=== PATIENT | male | born 1985 | race Caucasian/White ===

== ENCOUNTER 2016-11-06 12:55 | Emergency (ER) | payer OTHER ==
[2016-11-06] MEDS ORDERED: Sodium Chloride 0.9% 1,000 ML PRIMARY IV ONE (13:22)
[2016-11-06] MEDS ORDERED: NORMAL SALINE 10 ML SYRINGE FLUSH IVP PRN (13:22)
[2016-11-06 13:50] VITALS: RESP 18; TEMP 96.8
[2016-11-06 14:04] LABS: VENOUS PH 7.41 (7.32-7.42)
[2016-11-06 14:07] LABS: BASOPHILS # (AUTO) 0.03 10*3/UL; BASOPHILS % (AUTO) 0.5 % (0-1); EOSINOPHILS # (AUTO) 0.02 10*3/UL; EOSINOPHILS % (AUTO) 0.4 % (0-8); HEMATOCRIT 49.7 % (42.0-52.0); HEMOGLOBIN 17.5 g/dL (14.0-18.0); LYMPHOCYTES # (AUTO) 0.76 10*3/uL; MEAN CORPUSCULAR HEMOGLOBIN 29.2 PG (27-31); MEAN CORPUSCULAR HGB CONC 35.2 g/dL (33-37); MEAN CORPUSCULAR VOLUME 82.8 FL (80-90); MEAN PLATELET VOLUME 11.1 FL (7.4-12.2); MONOCYTES % (AUTO) 16.4 % (5-15); NEUTROPHILS # (AUTO) 3.75 10*3/UL; NEUTROPHILS % (AUTO) 68.4 % (50-80)
[2016-11-06 14:11] LABS: PLATELET MORPHOLOGY COMMENT NORMAL MORPHOLOGY (NORM); RBC MORPHOLOGY COMMENT NORMAL MORPHOLOGY (NORM); WBC MORPHOLOGY COMMENT NORMAL MORPHOLOGY (NORM)
[2016-11-06 14:14] LABS: BLOOD UREA NITROGEN 12 mg/dL (7-22); CALCIUM 8.8 mg/dL (8.7-10.7); EST GLOMERULAR FILTRATION > 60 (>60 ml/min/1.73m(2)); LIPASE 53 IU/L (23-300); SERUM ALBUMIN 3.9 g/dL (3.5-4.8)
--- NOTE | 2016-11-06 15:41 | DI ---
HISTORY: Right-sided abdominal pain and diarrhea. TECHNIQUE: Contiguous transaxial computed tomographic images were obtained of the abdomen and pelvis per routine protocol with IV contrast. Coronal and sagittal reformat images were performed. COMPARISON: None. FINDINGS: LUNG BASES: Clear. INFERIOR MEDIASTINUM: Unremarkable. LIVER: Normal in size and attenuation with no focal abnormalities. GALLBLADDER AND BILE DUCTS: Gallbladder is normal in appearance with no gallbladder wall thickening or pericholecystic fluid. No biliary dilatation. SPLEEN: Normal in size and attenuation with no focal abnormalities. PANCREAS: Normal in size and attenuation with no focal abnormalities. ADRENALS: Normal in size and attenuation with no focal abnormalities. : Kidneys enhance normally with no focal abnormalities. No evidence of urinary obstruction or obst ructing urinary calculi. Ureters are normal throughout their course. Urinary bladder is within norm al limits. GI: there is diffuse mild thickening and inflammation throughout the colon. There is no focal rim enh ancing fluid collection to suggest abscess formation. There is no appendicitis. PELVIS: Within normal limits with no mass identified. VESSELS: Aorta is normal in size with no evidence of aneurysm or rupture. BONES: No acute bony abnormality. No suspicious osteolytic or osteoblastic lesion. SOFT TISSUES: Unremarkable. IMPRESSION: 1. There is diffuse mild thickening and inflammation of the colon. This is most likely an infectious colitis. Inflammatory colitis is also possible.
--- NOTE | 2016-11-06 18:54 | PDOC ---
Nausea/Vomiting/Diarrhea HPI - General Chief Complaint: Nausea / Vomiting / Diarrhea Stated Complaint: Diarrhea x 2 days Date Seen by Provider: 11/06/16 Time Seen by Provider: 13:10 Source: POSITIVE: Patient, Spouse Exam Limitations: POSITIVE: No limitations Nurse's Notes Reviewed & Considered: Yes - History of Present Illness Initial Comments: The patient is a 30-year-old male. His chief complaint is diarrhea. He states that 3 days ago he felt febrile and states he had a temperature of 102 at the onset of his illness 3 days ago. He states he continued to run a fever for 1-1- 1/2 days. He does not think he's had any fever for at least 1-1/2 days. Beginning 2 days ago he began to develop some diarrhea. Patient states he estimates that he has been having 12-15 loose bowel movements per day for the past 2 days. Patient describes the character of the stool as "watery and mucousy". No melena or hematochezia. He also has had some abdominal cramping and some discomfort in the right paraumbilical area, mild. No vomiting. No melena, hematochezia, hematemesis, dysuria or hematuria. He's not had any abdominal surgery. No rashes or skin changes. Body Location Affected: REPORTS: Abdomen Timing: REPORTS: Constant Duration: >24 hours (Diarrhea for 2 days) Severity: Moderate Quality: REPORTS: "Pain" (Lower abdominal cramping and some right paraumbilical discomfort) Abdominal Pain Onset Location: REPORTS: Periumbilical Abdominal Pain Radiation: REPORTS: No radiation Context: DENIES: None, Activity, Bending, Coughing, Fall, Lifting, Near Fall, Rest, Sitting, Sleep, Standing, Turning, Emotional stress, Camping, Bad Food, Out of Country Travel, Other, Recent Surgery, Recent Trauma Modifying Factors: worse with: Nothing, Analgesics, Antacids, Breathing, Coughing, Defecating, Vomiting, Eating, Exercise, Lying down, Urinating, Palpation, Movement, Rest, Upright Position, Walking, Remaining Still, Other Associated Symptoms: REPORTS: Diarrhea, Mucous Diarrhea, Abdominal Pain, Cramping, Periumbilical Pain Similar Symptoms Previously: No Recent Care Received: REPORTS: Denies Any Prior Injuries Related to Current Complaint?: No - Patient Home Medications Home Medications: Home Medications Bismuth Subsalicylate [Pepto-Bismol] 525 mg PO PRN 11/06/16 Loperamide [Imodium] 2 mg PO PRN 11/06/16 - Patient Allergies Allergies/Adverse Reactions: Allergies Allergy/AdvReac Type Severity Reaction Status Date / Time erythromycin base Allergy HIVES Verified 11/06/16 13:51 Sulfa (Sulfonamide Allergy HIVES Verified 11/06/16 13:51 Antibiotics) Past Medical History - heen HEENT History: Denies History Cardiovascular History: Denies History Respiratory History: Denies History Gastrointestinal History: Denies History Genitourinary History: Denies History Endocrine History: Denies History Musculoskeletal History: Denies History Prosthesis or Implant: No Neurological History: Seizures Additional Neurological History: none since 13 yrs of age Blood Disorders: Denies History Psychiatric History: Denies History History of Sexually Transmitted Diseases: No Male Reproductive History: Denies History Cancer History: Denies History In Past Year Been Physically Harmed or Verbally Threatened: No History of MDRO: No History of Other Communicable Diseases: No Tobacco Use: Never Smoker Alcohol Use: Other How much alcohol do you normally drink a day?: daily Substance Use Type: None Previous Surgical History: No Past Medical History Reviewed: Reviewed - No Changes ROS - Limitations ROS Limitations: No Limitations Constitution: REPORTS: Fever (None for the past 2 days) Cardiovascular: REPORTS: Denies Cardiac Symptoms Respiratory: REPORTS: Denies Resp Symptoms Neurological: REPORTS: Denies Neuro Symptoms Gastrointestinal: REPORTS: Abdominal Pain, Diarrhea Endocrine: REPORTS: Denies Symptoms Musculoskeletal: REPORTS: Denies MS Symptoms Genitourinary: REPORTS: Denies Symptoms Eyes: REPORTS: Denies Symptoms ENT: REPORTS: Denies Symptoms Skin: REPORTS: Denies Skin Symptoms Lympathic: REPORTS: Denies Lympathic Symptoms Immunologic: POSITIVE: Denies Symptoms Psychiatric: POSITIVE: Denies Psych Symptoms Nausea/Vomiting/Diarrhea Exam - General Appearance General Appearance: POSITIVE: Alert, Cooperative, No Acute Distress, No Evidence of Trauma - HEENT HEENT: POSITIVE: Head Inspection Nml, Eyes Inspection Nml, Ears Inspection Nml, Nose Inspection Nml, Oral/Dental Inspect. Nml, Pharynx Inspect. Nml, PERRL, EOMI - Neck Neck: POSITIVE: Supple, Normal Inspection, Non Tender - Respiratory Respiratory: POSITIVE: No Respiratory Distress, Breath Sounds Normal, Chest Non- Tender - Cardiovascular Cardiovascular: POSITIVE: Regular Rate and Rhythm, Heart Sounds Normal, Equal Pulses, Strong Pulses Peripheral Pulses: Radial (R): 2+, Radial (L): 2+ - Chest Chest: POSITIVE: Non Tender - Abdomen Abdomen: Soft: (All Quadrants), Normal Bowel Sounds: (All Quadrants), No Splenomegaly: (All Quadrants), No Hepatomegaly: (All Quadrants), No Guarding: ( All Quadrants), No Rebound: (All Quadrants), No Palpable Pulse: (All Quadrants) , No Palpabale Mass: (All Quadrants), No Distention: (All Quadrants), No Rigidity: (All Quadrants) Additional Abdominal Details: Abdominal examination shows bowel sounds to be active. Patient states he has some vague mild discomfort on firm deep palpation in the paraumbilical area, especially to the right. No masses, organomegaly or rebound. - Genital / Rectal Rectal: POSITIVE: Heme Positive Stool (Stool tested Hemoccult positive when he had a bowel movement; no rectal exam done) - Back Back: POSITIVE: Normal Inspection. 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 Lab Results Reviewed: Yes (C. difficile negative, Giardia and cryptosporidium negative, no leukocytes ) Lab Results:: Laboratory Results 11/06/16 11/06/16 Range/Units 13:45 13:55 WBC 5.49 (4.8-10.8) 10^3/uL RBC 6.00 (4.70-6.10) 10^6/uL Hgb 17.5 (14.0-18.0) g/dL Hct 49.7 (42.0-52.0) % MCV 82.8 (80-90) FL MCH 29.2 (27-31) PG MCHC 35.2 (33-37) g/dL RDW Std Deviation 40.1 (39-50) fL RDW Coeff of Jessica 13.2 (11.5-14.5) % Plt Count 174 (140-350) 10*3/uL MPV 11.1 (7.4-12.2) FL Immature Gran % (Auto) 0.5 (0-5) % Neut % (Auto) 68.4 (50-80) % Lymph % (Auto) 13.8 (10-50) % [place] % (Auto) 16.4 H (5-15) % Eos % (Auto) 0.4 (0-8) % Baso % (Auto) 0.5 (0-1) % Immature Gran # (Auto) 0.03 10*3/UL Neut # (Auto) 3.75 10*3/UL Lymph # (Auto) 0.76 10*3/uL [place] # (Auto) 0.90 H (0.3-0.8) 10*3/UL Eos # (Auto) 0.02 10*3/UL Baso # (Auto) 0.03 10*3/UL WBC Morphology Comment Normal morphology (NORM) Plt Morphology Comment Normal morphology (NORM) RBC Morph Comment Normal morphology (NORM) VBG pH 7.41 (7.32-7.42) VBG pCO2 35 L (45-55) mmHg VBG HCO3 22 (22-26) mmol/L VBG Base Excess -2 (-2-2) MMOL/L Sodium 136 (135-145) meq/L Potassium 4.0 (3.8-5.2) meq/L Chloride 99 (98-112) meq/L Carbon Dioxide 25 (23-33) meq/L Anion Gap 12 (5-20) BUN 12 (7-22) mg/dL Creatinine 1.1 (0.70-1.50) mg/dL Estimated GFR > 60 (>60 ml/min/1.73m(2)) BUN/Creatinine Ratio 10.90 (6-20) Glucose 108 (78-110) mg/dL Calculated Osmolality 282.0 (267-292) mOsm/kg Lactic Acid 2.3 H (0.70-2.10) MMOL/L Calcium 8.8 (8.7-10.7) mg/dL Total Bilirubin 0.7 (0.3-1.2) mg/dL AST 32 (21-57) IU/L ALT 49 (21-72) IU/L Alkaline Phosphatase 56 (38-126) IU/L Total Protein 6.5 (6.1-8.0) g/dL Albumin 3.9 (3.5-4.8) g/dL Globulin 2.7 (2.50-4.10) g/dL Albumin/Globulin Ratio 1.40 (1.3-2.0) mg/g Amylase 40 (30-110) U/L Lipase 53 (23-300) IU/L - Patient's Progress Pain Medication Addressed: POSITIVE: Not Applicable School/Work Release Addressed: POSITIVE: Yes (Patient given work release for 72 hours) Re-examine Time: 16:00 Re-Examine Comment: Patient hydrated with a liter of normal saline. Diagnosis of colitis, probably infectious, discussed with and his . Options of treatment, including admission, discussed with patient and his . Patient advised that he needs to be followed up in a timely manner. I discussed disposition of treatment with Dr. Aldana, primary care. [place] [facility] [place]; hopefully stool cultures will be back by then. Patient is to return here anytime if he worsens in any way, especially if he develops abdominal pain, high fevers, bloody stool, or if condition worsens in any way. Status: POSITIVE: Unchanged, Re-Examined - Consult Consult (If Yes, Name of Consulting MD & Time Called): Yes (Dr. Aldana, [facility], [id number]) Consulting MD will see pt:: POSITIVE: In Office Counseled: POSITIVE: Patient, Family (), RE: Lab Results, RE: Radiology Results, RE: DX, RE: Need for F/U Patient Care Time - Estimated PCT Patient Care Time (In Minutes): 50 Vital Signs - Recent Vital Signs Vital Signs: Vital Signs (Last 8 hours) Temp Pulse Resp BP Pulse Ox 11/06/16 13:04 96.8 F 108 H 18 154/102 97 - VS Reviewed Vital Signs Reviewed: Yes Discharge Clinical Impression: Gastroenteritis, Colitis Discharge Disposition: Discharged to Home Condition: Fair Patient Instructions Given at Discharge: Gastroenteritis (ED) Additional Instructions: Clear liquid diet for 12 hours. Increase fluids. Your blood and stool tests so for have all been normal. Stool culture is pending. CT scan does show that she would have some mild diffuse thickening of the colon most likely compatible with an infectious coli this. I would prefer not to put shoe on antibiotics at this time, since this can cause an increase in your gastrointestinal symptoms. Please follow-up in the primary care clinic in 2-3 days; hopefully stool cultures will be available at that time, and hopefully her condition will be improving. Return here anytime if condition worsens in any way, especially if you develop high fevers, increased abdominal pain, vomiting, or if condition worsens in any way. Otherwise follow-up in the primary care clinic in 2-3 days. Follow Up With: NONE,NONE [Primary Care Provider] - (Instructions as above. Follow-up with primary care clinic in 48-72 hours. Return here anytime if condition worsens in any way.)
== END 2016-11-06 16:17 | disposition home or self-care (01) ==
LOC: ER 12:55
DX: K52.9 Noninfective gastroenteritis and colitis, unspecified (principal); R50.9 Fever, unspecified; R10.33 Periumbilical pain; R19.7 Diarrhea, unspecified
CPT/HCPCS: 36415; 74177; 80053; 82150; 82272; 82803; 83605; 83690; 85025; 87040; 87046; 87077; 87186; 87205; 87328; 87329; 87493; 96360; 99283; J7030